=== PATIENT | female | born 1955 | race Hispanic/Latino ===

== ENCOUNTER 2019-04-15 09:30 | Emergency (ER) | payer BC, OTHER ==
[~2019-04-15] VITALS: Ht 152.4 cm; Wt 76.2 kg
--- OUTSIDE RECORDS SUMMARY | 2019-04-15 09:32 | XMS REPORT ---
Author Author [facility] Address Unknown Phone Unavailable Care Team Providers Care Consignee Name Role Phone Parish URIARTE Unavailable Unavailable Problems This patient has no known problems. Allergies, Adverse Reactions, Alerts This patient has no known allergies or adverse reactions. Medications This patient has no known medications. Results Test Description Test Time Test Comments Text Results Atomic Results Result Comments MAMMOGRAPHY DIGITAL DX UNI LT [place] [address] [place] [address] Patient Name: MARIA SOTO MR #: [id number] : 1955 Age/Sex: 62/F Req #: [id number] [facility] Physician: Ordered by: ANDREAS URIARTE MD Report #: [id number] Location: MAMMO Room/Bed: Procedure: [id number] MG/MAMMOGRAPHY DIGITAL DX UNI LT Exam Date: 07/24/17 Exam Time: 1123 REPORT STATUS: Signed #[id number] - [id number] #UNILATERAL LEFT DIGITAL DIAGNOSTIC MAMMOGRAM WITH SPOT COMPRESSION: 07/24/2017 CLINICAL: Patient returns today to evaluate a density in the left breast. Comparison is made to exams dated: 07/01/2017 mammogram - [facility] and 09/16/2014 mammogram - [facility]. Current study contains 3 films. The tissue of the left breast is heterogeneously dense. This may lower the sensitivity of mammography. No significant masses, calcifications, or other findings are seen in the breast. Focal spot compression in the lower, inner aspect of the left breast fails to substantiate a mass. There has been no significant interval change. IMPRESSION: BENIGN There is no mammographic evidence of malignancy. A 1 year screening mammogram is recommended. The patient will be notified by letter of the results. Abraham Gomez Jr., D.O. cw/:07/24/2017 14:45:08 Delinquent Tax Collection Assistant: Charla BRYAN)(Parish), [facility] letter sent: Normal Exam Mammogram BI-RADS: 2 Benign Dictated By: ABRAHAM GOMEZ DO 1445 Transcribed By: JESSE on 07/24/17 144 COPY TO: ANDREAS URIARTE MD MAMMOGRAPHY DIGITAL SCR BILAT [place] [address] Patient Name: MARIA SOTO MR #: [id number] : 1955 Age/Sex: 62/F Req #: [id number] Adm Physician: Ordered by: ANDREAS URIARTE MD Report #: [id number] Location: MAMMO Room/Bed: Procedure: [id number] MG/MAMMOGRAPHY DIGITAL SCR BILAT Exam Date: 07/01/17 Exam Time: 1050 REPORT STATUS: Signed #[id number] - [id number] #BILATERAL DIGITAL SCREENING MAMMOGRAM WITH CAD: 07/01/2017 CLINICAL: Routine screening. Comparison is made to exam dated: 09/16/2014 mammogram - [facility]. Current study contains 4 films. The tissue of both breasts is heterogeneously dense. This may lower the sensitivity of mammography. Current study was also evaluated with a Computer Aided Detection (CAD) system. There is a 5 mm density in the lower inner anterior left breast, 6 cm from the nipple. No significant masses, calcifications, or other findings are seen in either breast. IMPRESSION: INCOMPLETE: NEEDS ADDITIONAL IMAGING EVALUATION Recommend diagnostic left mammogram with spot compression and lateral views. Please request left breast limited ultrasound, to be performed if needed after mammogram. The patient will be contacted by the Mammography Department to schedule this appointment. Dr. Yolanda Dc MD rs/jesse:07/11/2017 07:09:36 Delinquent Tax Collection Assistant: Charla WELCH(Jed)(Parish), [facility] letter sent: Additional Imaging Needed Mammogram BI-RADS: 0 Indeterminate Dictated By: YOLANDA DC MD 8 Transcribed By: JESSE on 07/11/17708 COPY TO: ANDREAS URIARTE MD
[2019-04-15] MEDS ORDERED: DONNATAL/LIDOCAINE/MAALOX 30 ML SUSP PO NR (10:15)
[2019-04-15] MEDS ORDERED: SODIUM CHLORIDE 0.9% 1000ML 1,000 ML IV STA (10:35)
[2019-04-15] MEDS ORDERED: LEVOFLOXACIN 500MG/D5W 100ML 100 ML IV STA (10:35)
[2019-04-15] MEDS ORDERED: METRONIDAZOLE 500MG/NS 100ML 100 ML IV STA (10:35)
[2019-04-15] MEDS ORDERED: ONDANSETRON HCL INJ 2MG/ML 2ML 2 MG/ML VIAL IV NR (10:45)
--- NOTE | 2019-04-15 11:20 | Diagnostic Imaging Report ---
EXAM: CHEST SINGLE (PORTABLE), AP Portable DATE: 04/15/2019 Time stamp on exam: 11:00 AM INDICATION: Vomiting COMPARISON: None FINDINGS: LINES/TUBES: None LUNGS: No consolidations or edema. PLEURA: No effusions or pneumothorax. HEART AND MEDIASTINUM: Normal size and contour. Small air-containing structure in the mediastinal region likely represents a small hiatal hernia. BONES AND SOFT TISSUES: No acute findings. There is no subdiaphragmatic air. IMPRESSION: No acute thoracic abnormality. Signed by: Dr. Wm Gomez DO on 04/15/2019 11:17 AM
[2019-04-15 11:42] LABS: BASOPHILS % 0.4 % (0.0-1.0); EOSINOPHILS # (AUTO) 0.3 (0.0-0.4); EOSINOPHILS % 3.3 % (0.0-6.0); HEMATOCRIT 36.2 % (34.2-44.1); MEAN CORPUSCULAR HEMOGLOBIN 28.7 pg (28-32); MEAN CORPUSCULAR HGB CONC 33.1 g/dL (31-35); MEAN CORPUSCULAR VOLUME 86.6 fL (81-99); MONOCYTES # (AUTO) 0.6 (0.2-0.8); MONOCYTES % 7.4 % (4.4-11.3); NEUTROPHILS # (AUTO) 4.9 (2.1-6.9); NEUTROPHILS % 62.5 % (38.7-80.0); PLATELET COUNT 304 x10e3/uL (140-360); RED BLOOD COUNT 4.18 x10e6/uL (3.6-5.1); RED CELL DISTRIBUTION WIDTH 13.2 % (11.7-14.4)
[2019-04-15 11:52] LABS: BILIRUBIN,URINE NEGATIVE (NEGATIVE); CLARITY,URINE SL CLOUDY (CLEAR); COLOR,URINE YELLOW (YELLOW); KETONES,URINE NEGATIVE (NEGATIVE); LEUKOCYTE ESTERASE ,URINE TRACE (NEGATIVE); NITRITE,URINE NEGATIVE (NEGATIVE); PROTEIN,URINE DIPSTICK TRACE (NEGATIVE); URINE UROBILINOGEN 0.2 mg/dL (0.2 - 1)
[2019-04-15 12:02] LABS: ALANINE AMINOTRANSFERASE 43 IU/L (0-55); ALBUMIN 3.6 g/dL (3.5-5.0); ALBUMIN/GLOBULIN RATIO 1.1 (0.8-2.0); ALKALINE PHOSPHATASE 54 IU/L (40-150); ANION GAP 15.5 mmol/L (8-16); BLOOD UREA NITROGEN 10 mg/dL (7-26); BUN/CREATININE RATIO 13 (6-25); CALCIUM 9.1 mg/dL (8.4-10.2); CARBON DIOXIDE 22 mmol/L (22-29); CHLORIDE 105 mmol/L (98-107); CREATINE KINASE 37 IU/L (29-168); CREATININE, SERUM 0.79 mg/dL (0.57-1.11); EST GLOMERULAR FILTRATION RATE > 60 ML/MIN (60-); GLUCOSE 99 mg/dL (74-118); LIPASE 72 U/L (8-78); POTASSIUM 3.5 mmol/L (3.5-5.1); SODIUM 139 mmol/L (136-145)
[2019-04-15 12:10] LABS: BACTERIA,URINE RARE /HPF; EPITHELIAL CELLS,URINE MODERATE /LPF; TRANSITIONAL EPI CELLS,URINE RARE
--- NOTE | 2019-04-15 14:29 | Diagnostic Imaging Report ---
EXAM: CT ABDOMEN AND PELVIS with IV CONTRAST DATE: 04/15/2019 Time stamp on Exam: 1:15 PM INDICATION: Nausea and vomiting with abdominal pain COMPARISON: None TECHNIQUE: The abdomen and pelvis were scanned using a multidetector helical scanner. Coronal and sagittal reformations were obtained. Routine protocol performed. Technique modification was utilized to maintain the lowest dose possible to the patient. IV Contrast: 100 cc of Isovue-370 Oral Contrast: Water Radiation Dose: Total DLP 530.93 mGy*cm Estimated effective dose: DLP x 0.015 x size factor FINDINGS: LOWER THORAX: There is a broad based pleural nodule measuring 8 mm in the left lung base. Follow-up CT scan in 6 months to maintain stability is suggested. Moderate-sized hiatal hernia. LIVER: No masses with mildly diminished CT attenuation. BILIARY: The gallbladder is unremarkable. No ductal dilatation. SPLEEN: No masses PANCREAS: No masses ADRENALS: No nodules KIDNEYS: Symmetric perfusion. No enhancing masses. No hydronephrosis. GI TRACT: There is fluid present within the rectum that outlines a hyperdense substance suggesting a mass versus hyperdense feces. Correlation with the digital rectal exam is suggested. The appendix is normal. VESSELS: Unremarkable PERITONEUM/RETROPERITONEUM: No free air or fluid LYMPH NODES: No lymphadenopathy REPRODUCTIVE ORGANS: Unremarkable BLADDER: Unremarkable SOFT TISSUES: Small umbilical hernia BONES: No suspicious bone lesions. Degenerative changes of the spine with several striated vertebrae likely secondary to multiple hemangiomas. IMPRESSION: 1. Possible rectal mass versus hyperdense feces. 2. Moderate sized hiatal hernia. 3. Broad pleural based left lower lobe pulmonary nodule. Signed by: Dr. Wm Gomez DO on 04/15/2019 2:26 PM
[2019-04-15] MEDS ORDERED: SODIUM CHLORIDE 0.9% 50ML 50 ML ONE (15:17)
[2019-04-15] MEDS ORDERED: IOPAMIDOL 370 MG/ML 200 ML INFUS..BTL INJ ONE (15:17)
[2019-04-15 15:34] VITALS: BP 121/70
[2019-04-16] MEDS ORDERED: METOPROLOL TART50 MG PO (14:28)
[2019-04-16] MEDS ORDERED: LOSARTAN POTAS100 MG PO (14:28)
[2019-04-16] MEDS ORDERED: LEVOTHYROXINE PO (14:28)
[2019-04-16] MEDS ORDERED: ALENDRONATE SOD70 MG PO (14:28)
[2019-04-16] MEDS ORDERED: CITALOPRAM PO (14:28)
== END 2019-04-15 15:39 | disposition home or self-care (01) ==
LOC: ER 09:30
DX: R19.7 Diarrhea, unspecified (principal); K56.41 Fecal impaction
CPT/HCPCS: 36415; 71045; 74177; 80053; 81001; 82550; 82553; 83690; 84484; 85025; 99284; J1956; J2405; J7030; Q9967

== ENCOUNTER → 2019-04-17 | Day surgery (SDC) | payer OTHER ==
[~2019-04-17] MED LIST: ALENDRONATE SOD70 MG PO; CITALOPRAM PO; FENTANYL CITRATE/PF 100MCG/2 ML INJ ONE; LEVOTHYROXINE PO; LOSARTAN POTAS100 MG PO; METOPROLOL TART50 MG PO; MIDAZOLAM HCL 2 MG/2 ML VIAL ONE; PROPOFOL IV EMULSION 10 MG/ML 20 ML VIAL ONE
--- NOTE | 2019-04-17 18:59 | Operative Report ---
DATE OF PROCEDURE: 04/17/2019 SURGEON: Miguelangel Valdez MD PROCEDURES: Colonoscopy and polypectomy with biopsies. INDICATIONS FOR COLONOSCOPY: Rectal bleeding ?Rectal mass on CT scan. MEDICATIONS: The patient was done under MAC, please see anesthesiologist's note. PROCEDURE IN DETAIL: With the patient in left lateral decubitus position, flexible fiberoptic Olympus colonoscope was inserted into the rectum with ease and advanced all the way to the cecum. Mucosa overlying the cecum appeared to be within normal limits. One polyp was snared from the ascending colon. An approximately 1.5 cm submucosal lesion was noted in the proximal ascending colon suspicious for lipoma, biopsies were obtained. The rest of the ascending and the transverse appeared to be within normal limits. One polyp was snared from the descending colon. Minimal diverticulosis was noted in the sigmoid colon. One polyp was snared from the sigmoid colon. A large 3/4 fungating mass was noted in the distal rectum extending proximally from the dentate line. Multiple biopsies were obtained. The scope was subsequently withdrawn patient tolerated procedure well. IMPRESSION: 1. Ascending colon polyp, snared. 2. Rule out lipoma, ascending colon. 3. Descending colon polyp, snared. 4. Sigmoid colon polyp, snared. 5. Diverticulosis, sigmoid colon. 6. Large fungating 3/4 circumferential rectal mass extending proximally from the dentate line. Multiple biopsies obtained. 7. Internal hemorrhoids, none actively bleeding. PLAN: Follow up histology. The patient will need an oncology as well as a general surgical consultation. Miguelangel Valdez MD [facility] /[id number] cc: Elton De Leon MD
== END | disposition home or self-care (01) ==
LOC: OR 14:25
PROVIDERS: ATTEND Internal Medicine Gastroenterology
DX: C20 Malignant neoplasm of rectum (principal); D12.2 Benign neoplasm of ascending colon; D12.4 Benign neoplasm of descending colon; D12.5 Benign neoplasm of sigmoid colon; K57.30 Diverticulosis of large intestine without perforation or abscess without bleeding; K64.8 Other hemorrhoids; R19.7 Diarrhea, unspecified; R11.0 Nausea; R14.0 Abdominal distension (gaseous); E03.9 Hypothyroidism, unspecified; I10 Essential (primary) hypertension; Z68.30 Body mass index [BMI] 30.0-30.9, adult
CPT/HCPCS: 45380; 45385; J2250; J2704; J3010

== ENCOUNTER 2019-04-26 07:00 | Inpatient (IN) | payer OTHER ==
[~2019-04-26] VITALS: Ht 154.9 cm; Wt 78.5 kg
[~2019-04-26 07:00] MED LIST changes: -FENTANYL CITRATE/PF 100MCG/2 ML INJ ONE; -MIDAZOLAM HCL 2 MG/2 ML VIAL ONE; -PROPOFOL IV EMULSION 10 MG/ML 20 ML VIAL ONE
[2019-04-26] MEDS ORDERED: SODIUM CHLORIDE 0.9% 1000ML 1,000 ML ONE (07:55)
[2019-04-26] MEDS ORDERED: ONDANSETRON HCL INJ 2MG/ML 2ML 2 MG/ML VIAL ONE (07:55)
[2019-04-26] MEDS ORDERED: ONDANSETRON HCL INJ 2MG/ML 2ML 2 MG/ML VIAL IV STA (07:55)
[2019-04-26 07:59] LABS: BASOPHILS % 0.5 % (0.0-1.0); EOSINOPHILS # (AUTO) 0.2 (0.0-0.4); EOSINOPHILS % 2.5 % (0.0-6.0); HEMATOCRIT 37.2 % (34.2-44.1); HEMOGLOBIN 12.5 g/dL (12.0-16.0); LYMPHOCYTES # (AUTO) 2.6 (1.0-3.2); LYMPHOCYTES % 33.8 % (18.0-39.1); MEAN CORPUSCULAR HEMOGLOBIN 29.3 pg (28-32); MEAN CORPUSCULAR HGB CONC 33.6 g/dL (31-35); MEAN CORPUSCULAR VOLUME 87.3 fL (81-99); MONOCYTES # (AUTO) 0.7 (0.2-0.8); MONOCYTES % 9.4 % (4.4-11.3); NEUTROPHILS # (AUTO) 4.1 (2.1-6.9); NEUTROPHILS % 53.5 % (38.7-80.0); PLATELET COUNT 323 x10e3/uL (140-360); RED BLOOD COUNT 4.26 x10e6/uL (3.6-5.1); RED CELL DISTRIBUTION WIDTH 13.8 % (11.7-14.4)
[2019-04-26] MEDS ORDERED: SODIUM CHLORIDE 0.9% 1000ML 1,000 ML IV ONE (08:00)
[2019-04-26 08:13] LABS: ALANINE AMINOTRANSFERASE 21 IU/L (0-55); ALBUMIN 3.8 g/dL (3.5-5.0); ALBUMIN/GLOBULIN RATIO 1.1 (0.8-2.0); ALKALINE PHOSPHATASE 46 IU/L (40-150); ANION GAP 14.5 mmol/L (8-16); BLOOD UREA NITROGEN 11 mg/dL (7-26); BUN/CREATININE RATIO 13 (6-25); CALCIUM 9.3 mg/dL (8.4-10.2); CARBON DIOXIDE 22 mmol/L (22-29); CHLORIDE 101 mmol/L (98-107); CREATININE, SERUM 0.86 mg/dL (0.57-1.11); EST GLOMERULAR FILTRATION RATE > 60 ML/MIN (60-); GLUCOSE 108 mg/dL (74-118); POTASSIUM 3.5 mmol/L (3.5-5.1); SODIUM 134 mmol/L (136-145)
[2019-04-26 12:10] VITALS: BP 128/63
--- NOTE | 2019-04-26 12:10 | NUR ---
PATIENT RECEIVED FROM ER PER STRETCHER. ALERT AND VERBALLY RESPONSIVE. SKIN WARM AND DRY TO TOUCH, RESPIRATION EVEN AND UNLABORED. ABDOMEN SOFT AND NON DISTENDED, PATIENT SAID THAT SHE HAD A LOOSE STOOL THIS AM. PATIENT ORIENTED TO SURROUNDINGS, BED IN LOWER POSITION, CALL LIGHT AT REACH. INSTRUCTED TO CALL FOR ASSISTANCE NEEDED. FAMILY AT BED SIDE.
[2019-04-26 15:02] VITALS: BP 126/68
--- NOTE | 2019-04-26 16:17 | NUR ---
MD IN TO SEE PATIENT, NEW ORDERS RECEIVED.
[2019-04-26] MEDS ORDERED: HYDROCODONE/APAP 5MG-325MG TAB PO PRN (16:30)
[2019-04-26] MEDS ORDERED: ONDANSETRON HCL INJ 2MG/ML 2ML 2 MG/ML VIAL IV PRN (16:30)
[2019-04-26 20:00] VITALS: BP 125/65
--- NOTE | 2019-04-26 20:08 | NUR ---
RECEIVED PT IN BED AOX3 NO ACUTE DISTRESS NOTED .FAMILY IN THE BEDSIDE .DENIES PAIN .CALL LIGHT WITH IN REACH .CONTINUE TO MONITOR
[2019-04-26 20:23] VITALS: BP 126/68
[2019-04-26] MEDS ORDERED: MELATONIN 5 MG TABLET PO PRN (21:00)
[2019-04-26] MEDS: LOSARTAN POTASSIUM 100 MG TAB PO SCH ×2 (21:00→21:08)
[2019-04-26] MEDS ORDERED: SODIUM CHLORIDE 0.9% 50ML 50 ML ONE (22:38)
[2019-04-26] MEDS ORDERED: IOPAMIDOL 370 MG/ML 200 ML INFUS..BTL INJ ONE (22:38)
[2019-04-27] VITALS (9 sets, daily range): BP systolic 101–127; BP diastolic 52–72
[2019-04-27] MEDS ORDERED: PANTOPRAZOLE 40 MG 10ML VIAL IV STA (00:05)
--- NOTE | 2019-04-27 00:38 | History and Physical ---
CHIEF COMPLAINT: Rectal mass, was told to come to the hospital for further evaluation. HISTORY OF PRESENT ILLNESS: This is a 64-year-old female, who has multiple chief complaints with complaints of decreased oral intake, abdominal pain. Recent colonoscopy found to have according to the family, colon cancer. Came in last night with complaints of decreased oral intake over the last 2 weeks. Apparently, GI had told in fact last week that she had colon cancer and needed further workup and management. It seems that the family seemed to be very scared and came in early this morning to be further evaluated. They did not give me a true reason why they actually presented to the hospital except for they were told that she has colon cancer. She also endorses that she has had minimal stool output and decreased oral intake, but no nausea, vomiting, or chest pain. The patient was seen and evaluated at bedside on the medical floor. Currently, she is doing well with no other issues at this time. REVIEW OF SYSTEMS: Pertinent positives: Decreased oral intake, abdominal pain. Pertinent negatives: Denies any chest pain, palpitation, nausea, vomiting, diarrhea, dysuria, hematuria, frequency, urgency, lightheadedness, dizziness, cough, congestion, fever, or any other complaints. The rest of the 14-point review of systems are reviewed with the patient and are negative. ALLERGIES: NO KNOWN DRUG ALLERGIES. HOME MEDICATIONS: Alendronate 70 mg daily every week, losartan 100 mg daily, metoprolol 50 mg daily, citalopram 40 mg daily, and levothyroxine 25 mcg daily. PAST MEDICAL HISTORY: Hypothyroidism, hypertension, and recent diagnosis of colon cancer. PAST SURGICAL HISTORY: Recent colonoscopy with biopsy. FAMILY HISTORY: Hypertension and diabetes. SOCIAL HISTORY: No drugs. No alcohol. Does not smoke. Good social support. MICROBIOLOGY: None. IMAGING STUDIES: There was a CT abdomen and pelvis back on 04/15/2019 that showed evidence of a rectal mass. No recent imaging at this time. PHYSICAL EXAMINATION: GENERAL: Not in acute distress. Alert and oriented x3. Cooperative on examination. HEENT: Head is normocephalic and atraumatic. Eyes; pupils are equal, round, and reactive to light bilaterally. Extraocular movements are intact bilaterally. Throat, there is no evidence of erythema or exudates in the posterior pharynx. Has poor dentition. NECK: Supple. Good range of motion. PULMONARY: Clear to auscultation bilaterally. No wheezing, no rales, no rhonchi, no crackles appreciated CARDIOVASCULAR: Positive S1 and S2. No murmurs, rubs, or gallops appreciated. ABDOMEN: Soft, nondistended, and nontender to palpation. Bowel sounds present. MUSCULOSKELETAL: Strength is 5/5 throughout. No evidence of any muscle deficits on examination. No weakness appreciated. NEUROLOGICAL: Cranial nerves II through XII grossly intact. No evidence of any neurological deficits on exam. SKIN: Intact. Warm to touch. Good cap refill. PSYCHIATRIC: Normal affect and mood. EXTREMITIES: No edema. Good range of motion throughout. IMPRESSION: 1. Abdominal pain with decreased oral intake with recent diagnosis of colon cancer. 2. Rectal mass status post colonoscopy with biopsy per family consistent with colon cancer. Pathology is not available in the EMR. 3. Hypertension. 4. Hypothyroidism. PLAN: At this time, I will go ahead and consult with GI. The family reports that Dr. Lobo had called on April 22 and told them that it is colon cancer and needs to be further evaluated. Somehow, the family showed up to the hospital this morning to be further evaluated. If this is true, I do not have the pathology report here at the MR, I will go ahead and just consult with Surgery, which has already been done in the ER. Oncology and Dr. Valdez, GI to come and evaluate her. We will go and restart all other home medications, losartan, and metoprolol. Continue with levothyroxine, citalopram as well. I had a long discussion with the family at bedside. They verbalized understanding. She can go on a regular diet. Family reports that she has some gross bleeding as well during her stools, which we will go ahead and just put SCDs. Otherwise, we will await recommendations from the consultants for further management and care. MD ODALYS Toussaint/SOTERO /[id number]
--- NOTE | 2019-04-27 01:27 | Diagnostic Imaging Report ---
EXAM: CT Chest WITH contrast 04/26/2019 8:37 PM INDICATION: rectal cancer, lung nodule COMPARISON: Abdominal CT 04/15/2019 TECHNIQUE: Chest was scanned utilizing a multidetector helical scanner from the lung apex through the level of the adrenal glands without administration of IV contrast. Coronal and sagittal reformations were obtained. Routine protocol was performed. IV CONTRAST: 100 mL of Isovue 370 COMPLICATIONS: None RADIATION DOSE: Total DLP: 527 mGy*cm Estimated effective dose: (DLP x 0.014 x size factor) mSv CTDIvol has been reviewed. It is below the limits set by the Radiation Protocol Committee (RPC). Dose modulation, iterative reconstruction, and/or weight based adjustment of the mA/kV was utilized to reduce the radiation dose to as low as reasonably achievable. FINDINGS: LINES/ TUBES: None. LUNGS AND AIRWAYS: Left apical linear scarring. Subtle nodularity/undulation along the left posterior basilar pleura. The previously described subpleural 8 mm left posterior basilar lung nodule seen on abdominal CT 04/15/2019 now measures 6 mm on today's exam (series 3 image 104). Focal scarring in the medial segment right middle lobe. Airways are normal. PLEURA: The pleural spaces are clear. HEART AND MEDIASTINUM: The thyroid gland is normal. No mediastinal, hilar or axillary lymphadenopathy. The heart is normal in size. There is no pericardial effusion. Aortic arch calcifications. UPPER ABDOMEN: Moderate hiatal hernia. BONES: The visualized bony thorax is within normal limits. SOFT TISSUES: Unremarkable. IMPRESSION: The previously described left lower lobe basilar nodule is smaller on today's examination and is likely inflammatory and/or focal scarring/atelectasis. No suspicious pulmonary findings. Signed by: Michael Toledo DO on 04/27/2019 1:24 AM
[2019-04-27] MEDS: LEVOTHYROXINE SODIUM 25 MCG TABLET PO SCH (06:00)
[2019-04-27 06:21] LABS: BASOPHILS % 0.4 % (0.0-1.0); EOSINOPHILS # (AUTO) 0.2 (0.0-0.4); EOSINOPHILS % 2.4 % (0.0-6.0); HEMATOCRIT 33.2 % (34.2-44.1); HEMOGLOBIN 10.7 g/dL (12.0-16.0); LYMPHOCYTES # (AUTO) 1.6 (1.0-3.2); LYMPHOCYTES % 23.8 % (18.0-39.1); MEAN CORPUSCULAR HEMOGLOBIN 28.4 pg (28-32); MEAN CORPUSCULAR HGB CONC 32.2 g/dL (31-35); MEAN CORPUSCULAR VOLUME 88.1 fL (81-99); MONOCYTES # (AUTO) 0.6 (0.2-0.8); NEUTROPHILS # (AUTO) 4.3 (2.1-6.9); PLATELET COUNT 280 x10e3/uL (140-360); RED BLOOD COUNT 3.77 x10e6/uL (3.6-5.1)
[2019-04-27 07:00] LABS: ALANINE AMINOTRANSFERASE 20 IU/L (0-55); ALBUMIN 3.2 g/dL (3.5-5.0); ALBUMIN/GLOBULIN RATIO 1.1 (0.8-2.0); ANION GAP 12.4 mmol/L (8-16); BLOOD UREA NITROGEN 8 mg/dL (7-26); BUN/CREATININE RATIO 10 (6-25); CALCIUM 8.5 mg/dL (8.4-10.2); CARBON DIOXIDE 26 mmol/L (22-29); CHLORIDE 103 mmol/L (98-107); CREATININE, SERUM 0.78 mg/dL (0.57-1.11); EST GLOMERULAR FILTRATION RATE > 60 ML/MIN (60-); GLUCOSE 100 mg/dL (74-118); POTASSIUM 3.4 mmol/L (3.5-5.1); SODIUM 138 mmol/L (136-145)
--- NOTE | 2019-04-27 07:12 | NUR ---
PT RESTING DENIES PAIN REPORT GIVEN TO THE ONCOMING NURSE
--- NOTE | 2019-04-27 07:18 | NUR ---
PATIENT IN BED RESTING WITH NO S/S OF DISTRESS. DENIED PAIN AT THIS TIME. ALL PERSONAL ITEMS CLOSE TO PATIENT. BED IN LOWER POSITION, CALL LIGHT AT REACH. FAMILY MEMBER AT BED SIDE.
[2019-04-27 07:21] LABS: ALKALINE PHOSPHATASE 40 IU/L (40-150)
[2019-04-27] MEDS ORDERED: GADOBENATE DIMEGLUMINE 1 ML IV ONE (07:57)
[2019-04-27] MEDS ORDERED: SODIUM CHLORIDE 0.9% 100 ML 100 ML ONE (07:57)
[2019-04-27] MEDS ORDERED: PANTOPRAZOLE 40 MG 10ML VIAL IV SCH (09:00)
[2019-04-27] MEDS: METOPROLOL TARTRATE 50 MG TAB PO SCH (09:00)
[2019-04-27] MEDS ORDERED: LEVOTHYROXINE 25 MCG PO SCH (09:00)
[2019-04-27] MEDS ORDERED: CITALOPRAM 40 MG PO SCH (09:00)
[2019-04-27] MEDS: CITALOPRAM HYDROBROMIDE 20 MG TAB PO SCH (09:04)
[2019-04-27] MEDS ORDERED: ONDANSETRON HCL 4 MG ORAL DISINTEGRATING TAB PO PRN (11:15)
--- NOTE | 2019-04-27 11:18 | NUR ---
CALL RECEIVED FROM RADIOLOGY STATING THAT PATIENT'S MRI TIME WAS BACK UP. PATIENT NOTIFIED, NO CONCERN VOICED.
--- NOTE | 2019-04-27 15:55 | NUR ---
Visit made by the Spiritual Care Department Pastoral Visitor, Cecily Cruz. PV provided pastoral presence, hospitality, and supportive listening. Pastoral Visitor informed pt/family of the scope of [employer] and availability. DOTTIE AMIN Room Service Clerk Spiritual Care Department O: [phone] Pager: [phone] ([phone] number calling from)
--- NOTE | 2019-04-27 16:14 | NUR ---
PATIENT IV INFILTRATED. REMOVED WITH TIP INTACT. NEW IV 20 GAUGE INSERTED TO LEFT FOREARM. PATIENT TOLERATED PROCEDURE WELL. IN BED WITH CALL LIGHT AT REACH.
[2019-04-27] MEDS ORDERED: POTASSIUM CHLORIDE 20 MEQ TAB CR PO ONE (17:15)
--- NOTE | 2019-04-27 20:14 | NUR ---
RECEIVED PT SITTING ON THE CHAIR FAMILY MEMBERS IN THE ROOM.DENIES PAIN .DR DE GUZMAN HAVE SEEN THE PT .CONTINUE TO MONITOR
--- NOTE | 2019-04-27 23:35 | Progress Note ---
DATE: 04/27/2019 SUBJECTIVE: The patient is currently doing well with no complaints. The patient's family has multiple questions related to her plan of care in terms of her underlying malignancy. I have discussed this with them at bedside using the nursing as well as computer at bedside. I reviewed all the data with them. It seems that the Oncology would like to have the MRI findings first before pursuing any other intervention at this time. PHYSICAL EXAMINATION: VITAL SIGNS: Temperature is 98.3, pulse 67, respiratory rate 16, blood pressure 108/67, and pulse ox 96% on room air. GENERAL: In no acute distress. Alert and oriented x3. Cooperative on examination. HEENT: Head is normocephalic and atraumatic. Eyes; pupils are equal, round, and reactive to light bilaterally. Extraocular movements are intact bilaterally. Throat, no evidence of erythema or exudates in the posterior pharynx. Has poor dentition. NECK: Supple. Good range of motion. PULMONARY: Clear to auscultation bilaterally. No wheezing, no rales, no rhonchi, no crackles appreciated. CARDIOVASCULAR: Positive S1 and S2. No murmurs, rubs, or gallops appreciated. GI: Abdomen is soft, nondistended, and nontender to palpation. Bowel sounds present. MUSCULOSKELETAL: Strength is 5/5 throughout. No evidence of any muscle deficits on examination. No weakness appreciated. NEUROLOGICAL: Cranial nerves II through XII grossly intact. No evidence of any neurological deficits on exam. SKIN: Intact. Warm to touch. Good cap refill. PSYCHIATRIC: Normal affect and mood. EXTREMITIES: No edema. Good range of motion throughout. LABORATORY DATA: Lab findings show white count 6.6, hemoglobin 10.7, hematocrit 33, and platelets of 280. Chemistry; sodium 138, potassium 3.4, chloride 103, bicarb 26, anion gap of 12, BUN is 8, and creatinine 0.78. Rest of the electrolytes are stable. MICROBIOLOGY: None. IMAGING STUDIES: CT chest shows left lower lobe basilar nodules, smaller on today's examination and is likely inflammatory or focal scarring atelectasis. No suspicious pulmonary findings. MRI of the pelvis is pending. IMPRESSION: 1. Recent diagnosis of colon cancer with a rectal mass, status post colonoscopy. 2. Hypertension. 3. Hypothyroidism. PLAN: At this time, I had a long discussion with the oncologist, Dr. Castro. I discussed overall plan of care with oncologist. At this time MRI of the pelvis, this will help for stage the patient and to determine what is the next plan of care. From there, can determine if the patient will need chemoradiation or resection if indicated. I have discussed this with the family at bedside and they do not seem to really understand at all despite me and the consultants discussing this with them thoroughly. I reviewed this again at bedside today with the nursing staff, but still I do not think they really understand. I spoke with Dr. Castro, she will come back tonight and discuss everything with the family once again and from there we will determine the next plan of care. MRI of the pelvis is still pending. Continue with same plan of care with no changes at this time. MD ODALYS Toussaint/SOTERO /[id number]
[2019-04-28] MEDS ORDERED: FAMOTIDINE 20 MG/2 ML VIAL IV STA (00:05)
[2019-04-28 04:00] VITALS: BP 106/58
[2019-04-28] MEDS: LEVOTHYROXINE SODIUM 25 MCG TABLET PO SCH (05:46)
--- NOTE | 2019-04-28 06:29 | NUR ---
PT RESTING NO ACUTE DISTRESS NOTED .FAMILY AT THE BEDSIDE .CALL LIGHT WITH IN REACH
--- NOTE | 2019-04-28 07:11 | NUR ---
BEDSIDE REPORT GIVEN TO THE ONCOMING NURSE
--- NOTE | 2019-04-28 07:30 | NUR ---
Pt received in bed with eyes open. Aox4 and able to verbalize needs. Pt denies any pain at this time. Breaths are even and unlabored at this time.
[2019-04-28 07:48] VITALS: BP 101/56
[2019-04-28 08:00] VITALS: BP 101/56
[2019-04-28] MEDS: FAMOTIDINE 20 MG/2 ML VIAL IV SCH ×3 (08:39→17:00)
[2019-04-28] MEDS: METOPROLOL TARTRATE 50 MG TAB PO SCH (09:00)
[2019-04-28] MEDS: CITALOPRAM HYDROBROMIDE 20 MG TAB PO SCH (09:33)
--- NOTE | 2019-04-28 10:00 | NUR ---
Pt states she felt nauseas this morning but now it has passed. Pt refused to take pepcid this morning because she states it doesn't help her and it makes her nauseas. Pt ate very little this morning. Family is upset because they feel that nothing is being done about her nausea and lack of appetite. Explained to pt that GI has changed her diet and changed her medication for this very reason. Notified attending and received orders or labs to be done today. Called MRI and asked for MRI of pelvis to be read STAT in order for physician to see results.
--- NOTE | 2019-04-28 10:36 | NUR ---
FLOR[facility] CALLED TO ROOM BY PT'S DTR ODIN WALSH [phone] SHE IS REQUESTING THAT PT BE TRANSFERED TO [facility] FOR CONTINUED CARE FEELS LIKE THERE IS NO COLLABORATION BETWEEN THE PHYSICIANS TAKING CARE OF PT AND THAT HER NEEDS ARE NOT BEING ADDRESSED NURSE INFANTE AWARE AND CALL PLACED TO DR MENDOZA TO NOTIFY HIM OF PT AND FAMILIES REQUEST GAVE PT'S DTR MY CARD WITH NAME AND NUMBER FOR QUESTIONS/CONCERNS
[2019-04-28 10:50] LABS: BASOPHILS # (AUTO) 0.1 (0.0-0.1); BASOPHILS % 0.7 % (0.0-1.0); EOSINOPHILS # (AUTO) 0.1 (0.0-0.4); EOSINOPHILS % 1.1 % (0.0-6.0); HEMATOCRIT 36.8 % (34.2-44.1); HEMOGLOBIN 11.9 g/dL (12.0-16.0); LYMPHOCYTES # (AUTO) 1.8 (1.0-3.2); LYMPHOCYTES % 25.6 % (18.0-39.1); MEAN CORPUSCULAR HEMOGLOBIN 28.5 pg (28-32); MEAN CORPUSCULAR HGB CONC 32.3 g/dL (31-35); MONOCYTES # (AUTO) 0.6 (0.2-0.8); MONOCYTES % 8.1 % (4.4-11.3); NEUTROPHILS # (AUTO) 4.6 (2.1-6.9); NEUTROPHILS % 64.1 % (38.7-80.0); PLATELET COUNT 313 x10e3/uL (140-360); RED BLOOD COUNT 4.18 x10e6/uL (3.6-5.1)
[2019-04-28 11:05] LABS: ANION GAP 12.8 mmol/L (8-16); BLOOD UREA NITROGEN 8 mg/dL (7-26); BUN/CREATININE RATIO 10 (6-25); CALCIUM 9.1 mg/dL (8.4-10.2); CARBON DIOXIDE 27 mmol/L (22-29); CHLORIDE 101 mmol/L (98-107); CREATININE, SERUM 0.78 mg/dL (0.57-1.11); EST GLOMERULAR FILTRATION RATE > 60 ML/MIN (60-); GLUCOSE 108 mg/dL (74-118); POTASSIUM 3.8 mmol/L (3.5-5.1); SODIUM 137 mmol/L (136-145)
--- NOTE | 2019-04-28 11:23 | Diagnostic Imaging Report ---
MRI OF THE PELVIS (RECTAL CARCINOMA) WITHOUT AND WITH CONTRAST CLINICAL HISTORY: Rectal carcinoma. COMPARISON: CT abdomen/pelvis 04/15/2019 TECHNIQUE: Using the torso phased array coil, axial and sagittal T2 weighted, axial and coronal T1-weighted, sagittal fat-suppressed T2-weighted sequences were obtained. Then, an axial post gadolinium fat-suppressed T1-weighted sequence was obtained. Images were obtained in a standard pelvis field of view. In other words, a dedicated rectal MRI protocol was not performed. CONTRAST: 15 cc IV gadolinium. FINDINGS: Polypoid rectal mass in the low rectum. Tumor Length: 7.4 cm maximum linear extent along the rectum. Tumor Distance from Pubococcygeal rin.7 cm distance from the top of the anal sphincter to the tumor. The sphincter is likely involved. Maximal Rectal Circumference Involved by Tumor: 5:00 to 11:00 positions Wall invasion: T3, full-thickness with invasion of the subserosa Circumferential Resection Margin: 0.5 cm at the 6:00 position. No involvement of the vagina or cervix. Relationship to Peritoneal Reflection: Below Perirectal Nodes (number, size and enhancing characteristics): Uniformly enhancing lymph node in the right mesorectum measures 1.3 x 0.9 cm There are 2 right external iliac chain lymph nodes that measure 0.8 x 1.4 cm and 0.7 cm. There are 3 lymph nodes in the left mesorectum. The largest measures 1.1 x 0.6 cm.. 2 lymph nodes along the inferior mesenteric vein measure 5 mm. N2 Side Wall Extension/Adjacent Organ Involvement: No involvement of the vagina, cervix, or uterus. No bladder involvement. Other Findings: The large bowel is not dilated. Mild burden of diverticulosis coli. No dilatation of the visualized portions of the small bowel. Visualized portion of the appendix is normal. The uterus is present and normal in morphology. No adnexal mass. Peritoneum/retroperitoneum: No free fluid or fluid collection. Bones: Normal marrow signal. No focal osseous lesions. IMPRESSION: Polypoid mass in the inferior rectum with likely sphincter involvement. No bowel obstruction. MR STAGE: T3 N2 Signed by: Dr. Kg Ordonez MD on 04/28/2019 11:20 AM
[2019-04-28 11:28] VITALS: BP 114/66
[2019-04-28] MEDS ORDERED: DEXTROSE 5%/0.9% SOD CHL 1,000 ML IV ONE (15:00)
[2019-04-28] MEDS ORDERED: PROMETHAZINE 12.5MG/ NACL 0.9% 12.5 MG/50 ML BAG IV PRN (15:00)
[2019-04-28] MEDS ORDERED: PROMETHAZINE 12.5MG/ NACL 0.9% 50 ML IV PRN ×2 (15:15)
[2019-04-28 15:57] VITALS: BP 144/68
--- NOTE | 2019-04-28 16:00 | NUR ---
Notified Dr. Valdez that pt is not tolerating clear liquid. An received orders for for abdominal ultrasound and HIDA scan. Dr. Castro came to see pt and family to discuss MRI results. Pt family is requesting that pt be transferred to [facility]. Attending was notified and he gave orders to initiate transfer. Case management is aware and initiated transfer process
--- NOTE | 2019-04-28 16:36 | NUR ---
ORDERS TO TRANSFER TO [facility] CALLED AND SPOKE WITH AKASH AT [facility] PH- [phone] FAXED FACE SHEET TO [phone] CHOICE LETTER DONE; MOT INITIATED AND PLACED ON FRONT OF CHART PT'S DTR ODIN REQUESTS COPIES OF EVERYTHING HER MOTHER SIGNED; COPIES PROVIDED REC'D CALL BACK SHORTLY AFTER INITIATED TRANSFER AKASH STATES THEY ARE ON DIVERT AND PT WAS DENIED BY DR REVELES PT, FAMILY AND DR MENDOZA NOTIFIED THAT PT WAS DENIED PT'S DTR AKASH REQUESTS THAT WE CONTINUE TO PURSUE TRANSFER DAILY WITH HOPES OF BED BECOMING AVAILABLE EXPLAINED TO PT'S DTR THAT PT MAY BE BETTER SERVED GOING TO [facility] OP EXPLAINED THAT I WILL CONTINUE TO PURSUE TRANSFER BUT PLAN B IS TO F/U OP AT [facility] ENCOURAGED PT'S DTR TO CONTACT [facility] AND TRY TO ARRANGE OP F/U
--- NOTE | 2019-04-28 17:37 | Diagnostic Imaging Report ---
EXAM: US ABDOMEN COMPLETE DATE: 04/28/2019 12:00 AM INDICATION: Nausea, vomiting, abdominal pain COMPARISON: None TECHNIQUE: Transverse and longitudinal castrejon scale and color doppler sonographic images of the upper abdomen were obtained. FINDINGS: There is no evidence of fluid or masses seen in the area of clinical concern in the right lower quadrant. LIVER 11.5 cm in the right midclavicular line. Normal echogenicity of the liver with normal contour, no masses. SPLEEN 8.1 cm in maximum diameter. Normal echogenicity, no masses. GALLBLADDER There is dependent sludge in the gallbladder. No gallbladder wall thickening or pericholecystic fluid. Negative sonographic Ovalles's. BILE DUCTS No intra nor extra-hepatic biliary dilation. Common bile duct measures 0.4cm PANCREAS: Visualized portions are normal. RIGHT KIDNEY: 9.8 cm Echogenicity: Normal Collecting System: No hydronephrosis Stones: None Cyst/Mass: None LEFT KIDNEY: 10.9 cm Echogenicity: Normal Collecting System: No hydronephrosis Stones: None Cyst/Mass: None VESSELS: Aorta: Visualized portions are within normal size limits Inferior Vena Cava: Visualized portions are normal Main Portal Vein: 0.9 cm, normal size with hepatopetal flow. FREE FLUID: None IMPRESSION: Gallbladder sludge with no gallbladder wall thickening or pericholecystic fluid. Negative sonographic Ovalles's sign. Signed by: Mica Toribio MD on 04/28/2019 5:34 PM
[2019-04-28] MEDS ORDERED: ONDANSETRON HCL 4 MG ORAL DISINTEGRATING TAB PO SCH (18:00)
--- NOTE | 2019-04-28 19:10 | NUR ---
Pt currently at [facility] Dept for HIDA Scan. Family members in room waiting for patient.
--- NOTE | 2019-04-28 19:45 | NUR ---
Patient arrived via wheelchair to Rm 295 s/p HIDA scan. Patient alert and oriented x3. No c/o pain or nausea at this time. Pt stated she feels fine at this time. Pt to be given Zofran 4mg PO prior to eating clear liquid diet as precaution. IVF (D5NS at 100ml/hr) restarted. Pt ambulatory in room prn. Family at bedside. Call ferrer within reach. Will monitor closely.
[2019-04-28 20:00] VITALS: BP 131/69
--- NOTE | 2019-04-28 20:00 | Progress Note ---
DATE: 04/28/2019 Medicine Progress Note SUBJECTIVE: The patient still reports having some nausea and vomiting. An MRI of the pelvis was noted and it was discussed with the family about the findings by Oncology. HIDA scan and abdominal ultrasound have been ordered. PHYSICAL EXAMINATION: VITAL SIGNS: Temperature is 99, pulse 77, respiratory rate is 20, blood pressure is 144/68, and pulse ox 98% on room air. GENERAL: Not in acute distress. Alert and oriented x3. Cooperative on examination. HEENT: Head is normocephalic and atraumatic. Eyes; pupils are equal, round, and reactive to light bilaterally. Extraocular movements are intact bilaterally. Throat, no evidence of erythema or exudates in the posterior pharynx. Has poor dentition. NECK: Supple. Good range of motion. PULMONARY: Clear to auscultation bilaterally. No wheezing, no rales, no rhonchi, no crackles appreciated. CARDIOVASCULAR: Positive S1 and S2. No murmurs, rubs, or gallops appreciated. ABDOMEN: Soft, nondistended, and nontender to palpation. Bowel sounds present. MUSCULOSKELETAL: Strength is 5/5 throughout. No evidence of muscle deficits on examination. No weakness appreciated. NEUROLOGIC: Cranial nerves II through XII grossly intact. No evidence of any neurological deficits on exam. SKIN: Intact. Warm to touch. Good cap refill. PSYCHIATRIC: Normal affect and mood. EXTREMITIES: No edema. Good range of motion throughout. LABORATORY FINDINGS: Show white count of 7.1, hemoglobin 11.9, hematocrit 36.8, and platelets of 330. Chemistry; sodium of 137, potassium 3.8, chloride 101, bicarb 27, anion gap 12, BUN is 8, creatinine 0.78, glucose is 108, and calcium is 9.1. CEA was 5.3. IMAGING STUDIES: Abdominal ultrasound is now back shows gallbladder sludge with no gallbladder wall thickening or pericholecystic fluid. Negative sonographic Ovalles sign. IMPRESSION: 1. 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 2. Hypertension. 3. Hypothyroidism. 4. Nausea, vomiting, and dehydration with decreased oral intake. PLAN: At this time, MRI of the pelvis was reviewed with the patient by Oncology. The patient has stage T3 N2 based on the MRI findings. It shows a polypoid mass in the inferior rectum with likely sphincter involvement. No bowel obstruction. At this time, abdominal ultrasound has been ordered and the results are back with no evidence of any cholecystitis. She is currently getting a HIDA scan that has been ordered by Dr. Valdez. I will re-arrange the antinausea medication, now she is on promethazine. If this does not work, I will add Reglan. Continue with IV fluids as well. We discontinued the losartan due to the blood pressure readings relatively low. I discussed overall plan of care with the family at bedside. The daughter wants to be transferred to [facility] for further treatment. I discussed with her that we can initiate this process, but she just kept this new diagnosis and less likely that they will be able to accept her, as currently she is not on any kind of chemotherapy treatment or radiation. At this time, we will continue with the process of transfer if she is accepted. Continue with antinausea medication, IV fluids, clear liquid diet, and pain control. We will continue to follow with her. Consultants are following as well. MD ODALYS Toussaint/SOTERO /[id number]
--- NOTE | 2019-04-28 20:04 | Diagnostic Imaging Report ---
Hepatobiliary Scan with Gallbladder Ejection Fraction Clinical information: Abdominal pain; nausea and vomiting Technique: Following intravenous administration of 7 millicuries of Tc-99m mebrofenin, dynamic images of the abdomen in the anterior projection were obtained through 45 minutes. Sincalide (CCK analog) 1.5 micrograms was administered intravenously over 30 minutes with additional imaging for determination of gallbladder ejection fraction. Discussion: Perfusion of the liver is normal. Extraction of tracer by the liver parenchyma is normal. Tracer appears promptly within the biliary tract. The gallbladder begins to fill at 6 minutes post injection of tracer and fills adequately. Tracer is seen in the small bowel by 22 minutes. There is no contractile response by the gallbladder to the pharmacologic dose of sincalide. No emptying of the gallbladder occurs during the 30 minute infusion. Impression: 1. Filling of the gallbladder excludes acute cystic duct obstruction/acute cholecystitis. 2. The gallbladder ejection fraction is undefined as there is no emptying of the gallbladder during the infusion of sincalide. This absence of a contractile response to sincalide supports the clinical diagnosis of chronic cholecystitis/gallbladder dyskinesia. Signed by: Dr. Charla Amezcua M.D. on 04/28/2019 8:01 PM
[2019-04-29] VITALS (7 sets, daily range): BP systolic 111–139; BP diastolic 56–64
[2019-04-29] MEDS: ACETAMINOPHEN 325 MG TAB PO PRN (00:58)
[2019-04-29] MEDS: ONDANSETRON HCL 4 MG ORAL DISINTEGRATING TAB PO SCH ×5 (01:04→23:12)
--- NOTE | 2019-04-29 01:15 | NUR ---
Dr. Miguelangel Valdez came and visited pt. MD spoke with patient and patient's at bedside explaining result of HIDA scan. MD informed gallbladder not functioning properly. Dr. Valdez also wanted patient to try to eat a sandwich now and see if patient can tolerate it without having episodes of nausea and vomiting.
--- NOTE | 2019-04-29 01:20 | NUR ---
Patient given 1 [address] eat per Dr. Pawel Valdez's order.
--- NOTE | 2019-04-29 01:25 | NUR ---
Patient ate half of the turkey sandwich and wanted to stop due to feeling of fullness. Patient denies any feeling of nausea and no episodes of vomiting. Pt kept food down at this time. MD (Dr. Pawel Valdez) made aware and ordered to advance diet to GI soft in the morning only if the patient does not have any episodes of nausea or vomiting.
--- NOTE | 2019-04-29 05:00 | NUR ---
Patient stated she had a bowel movement with mixture of blood stools. Will relay information to dayshift RN during shift change report.
[2019-04-29 05:52] LABS: BASOPHILS # (AUTO) 0.1 (0.0-0.1); BASOPHILS % 0.6 % (0.0-1.0); EOSINOPHILS # (AUTO) 0.1 (0.0-0.4); EOSINOPHILS % 1.3 % (0.0-6.0); HEMATOCRIT 33.1 % (34.2-44.1); HEMOGLOBIN 10.9 g/dL (12.0-16.0); LYMPHOCYTES # (AUTO) 2.4 (1.0-3.2); MEAN CORPUSCULAR HEMOGLOBIN 29.1 pg (28-32); MEAN CORPUSCULAR HGB CONC 32.9 g/dL (31-35); MEAN CORPUSCULAR VOLUME 88.3 fL (81-99); MONOCYTES # (AUTO) 0.7 (0.2-0.8); MONOCYTES % 9.2 % (4.4-11.3); NEUTROPHILS # (AUTO) 4.6 (2.1-6.9); NEUTROPHILS % 58.6 % (38.7-80.0); PLATELET COUNT 260 x10e3/uL (140-360); RED BLOOD COUNT 3.75 x10e6/uL (3.6-5.1)
[2019-04-29 06:08] LABS: ANION GAP 11.3 mmol/L (8-16); BLOOD UREA NITROGEN 7 mg/dL (7-26); BUN/CREATININE RATIO 9 (6-25); CALCIUM 8.2 mg/dL (8.4-10.2); CARBON DIOXIDE 26 mmol/L (22-29); CHLORIDE 102 mmol/L (98-107); CREATININE, SERUM 0.77 mg/dL (0.57-1.11); EST GLOMERULAR FILTRATION RATE > 60 ML/MIN (60-); GLUCOSE 100 mg/dL (74-118); POTASSIUM 3.3 mmol/L (3.5-5.1); SODIUM 136 mmol/L (136-145)
[2019-04-29] MEDS: LEVOTHYROXINE SODIUM 25 MCG TABLET PO SCH ×2 (06:13→23:12)
[2019-04-29] MEDS: DEXTROSE 5%/0.9% SOD CHL 1,000 ML IV SCH ×2 (08:00→18:12)
[2019-04-29] MEDS ORDERED: POTASSIUM CHLORIDE 20 MEQ TAB CR PO STA (08:16)
[2019-04-29] MEDS: METOPROLOL TARTRATE 50 MG TAB PO SCH (09:00)
[2019-04-29] MEDS: FAMOTIDINE 20 MG/2 ML VIAL IV SCH ×2 (09:00→17:00)
--- NOTE | 2019-04-29 09:49 | NUR ---
ASSESSMENT: Spiritual concern Referred by RN. Pt sleeping soundly with at bedside. Pt's looking to dalia for strength. Pt's states their daughter (RN at [employer] [place]) is a helpful in explaining illness. Pt's states he is a volunteer shrimp boat captain with [place] [employer]. Pt identifies as Alevism Spiritism. Intervention: Provided hospitality, empathic listening and pastoral presence. Facilitated discussion about resources. Provided business card and information on how to contact shrimp boat captain, if needed. Outcome: Pt's expressed appreciation for visit. Will follow as able. DOTTIE AMIN Assurance Senior Manager Insurance Spiritual Care Department O: [phone] Pager: [phone] ([phone] number calling from)
[2019-04-29] MEDS: CITALOPRAM HYDROBROMIDE 20 MG TAB PO SCH (10:08)
--- NOTE | 2019-04-29 12:00 | NUR ---
DISCUSSED IN ROUNDS TODAY HIDA SHOWS DYSKINESIA OF GB US ABD SHOWS SLUDGE IN GALLBLADDER SURGICAL CONSULT
--- NOTE | 2019-04-29 15:30 | NUR ---
Spoke with Dr. Pawel Valdez to inform pt is still having lots of nausea.Was told by Dr. Valdez that he spoke with Dr. Mao related to the abnormal HIDA scan and asked if I can notify Dr. Mao of pt symptoms. Notified Dr. Mao and he states he will come to see pt this evening.
--- NOTE | 2019-04-29 18:30 | NUR ---
New IV started on Left wrist and well tolerated by pt. Pt nausea has improved and was able to tolerated meal this evening.
--- NOTE | 2019-04-29 19:03 | Progress Note ---
DATE: 04/29/2019 Medicine Progress Note SUBJECTIVE: The patient is doing well today. Still complains of some nausea and vomiting. HIDA scan consistent with biliary dyskinesia. I discussed this with the GI. General Surgery was re-consulted to come and evaluate, possibly a cholecystectomy. I discussed this with the family at bedside. They verbalized understanding. PHYSICAL EXAMINATION: VITAL SIGNS: Temperature 98.9, pulse 87, respiratory rate is 18, blood pressure is 113/57, and pulse ox 100% on room air. GENERAL: No acute distress. Alert and oriented x3. Cooperative on examination. HEENT: Head is normocephalic, atraumatic. Eyes; pupils are equal, round, and reactive to light bilaterally. Extraocular movements intact bilaterally. Throat; no evidence of erythema or exudates in the posterior pharynx. Has poor dentition. NECK: Supple. Good range of motion. PULMONARY: Clear to auscultation bilaterally. No wheezing, rales, or rhonchi. No crackles appreciated. CARDIOVASCULAR: Positive S1, S2. No murmurs, rubs, or gallops appreciated. ABDOMEN: Soft, nondistended, and nontender to palpation. Bowel sounds present. MUSCULOSKELETAL: Strength is 5/5 throughout. No evidence of any muscle deficits on examination. No weakness appreciated. NEUROLOGIC: Cranial nerves II through XII are grossly intact. No evidence of any neurological deficits on exam. SKIN: Intact. Warm to touch. Good cap refill. PSYCHIATRIC: Normal affect and mood. EXTREMITIES: No edema. Good range of motion throughout. LAB FINDINGS: White count 7.8, hemoglobin 10.9, hematocrit 30.1, platelets are about 260. Chemistry; sodium 136, potassium 3.3, chloride 102, bicarb 26, anion gap of 11, BUN is 7, creatinine is 0.77, and glucose is 8.2. MICROBIOLOGY: None. IMAGING STUDIES: Abdominal ultrasound was performed, shows gallbladder sludge with no gallbladder wall thickening or pericholecystic fluid. Negative sonographic Ovalles sign. HIDA scan shows evidence of filling of the gallbladder exclude acute cystic duct obstruction or acute cholecystitis. The gallbladder ejection fraction is on the findings. There are no changes in the gallbladder during the infusion of the sincalide. The absence of the contractile response and clear supports include the diagnosis of chronic cholecystitis/gallbladder dyskinesia. IMPRESSION: 1. Recent diagnosis of adenocarcinoma of the colon with rectal mass, status post colonoscopy recently as well. 2. Hypertension. 3. Hypothyroidism. 4. Nausea, vomiting, dehydration, and decreased oral intake. 5. Biliary dyskinesia seen on HIDA scan. PLAN: At this time, from an Oncology standpoint, the workup can be performed as an outpatient. Family is still insisting on being transferred to [facility]. At this time, we will continue with that plan of care at the current moment. In relation to her biliary dyskinesia seen on HIDA scan, General Surgery has been consulted and he is supposed to come back to talk to the family and possible getting a cholecystectomy. She is currently still not eating much. She is on antinausea medication. She is on scheduled Reglan as well. Continue with IV fluids and pain control. I discussed the plan of care with the family at bedside and with the nursing staff present. We will get a.m. labs. MD ODALYS Toussaint/SOTERO /[id number]
--- NOTE | 2019-04-29 19:12 | NUR ---
Patient seen in room during nursing rounds. Patient alert and oriented x3. Dr. Maria A Mao in room talking to patient and family at bedside. MD explained pt will have Laparoscopic Cholecystectomy tomorrow afternoon (04/30/19). Patient and family agreed to plan of care. Currently, pt states she feels fine and denies any nausea or pain. Call ferrer within reach.
--- NOTE | 2019-04-29 21:04 | NUR ---
Patient's daughter (Dang Cuellar) and (David Craig) volunteered to sign consent papers on behalf of patient. Pt resting comfortably in bed.
[2019-04-30] VITALS (8 sets, daily range): BP systolic 106–157; BP diastolic 56–71
[2019-04-30] MEDS: ACETAMINOPHEN 325 MG TAB PO PRN (00:11)
[2019-04-30] MEDS: DEXTROSE 5%/0.9% SOD CHL 1,000 ML IV SCH ×2 (04:45→18:08)
[2019-04-30 06:05] LABS: BASOPHILS % 0.3 % (0.0-1.0); EOSINOPHILS # (AUTO) 0.2 (0.0-0.4); EOSINOPHILS % 2.5 % (0.0-6.0); HEMATOCRIT 30.8 % (34.2-44.1); HEMOGLOBIN 9.9 g/dL (12.0-16.0); LYMPHOCYTES # (AUTO) 2.5 (1.0-3.2); LYMPHOCYTES % 39.3 % (18.0-39.1); MEAN CORPUSCULAR HEMOGLOBIN 28.9 pg (28-32); MEAN CORPUSCULAR HGB CONC 32.1 g/dL (31-35); MEAN CORPUSCULAR VOLUME 90.1 fL (81-99); MONOCYTES # (AUTO) 0.7 (0.2-0.8); MONOCYTES % 10.5 % (4.4-11.3); NEUTROPHILS % 47.1 % (38.7-80.0); PLATELET COUNT 252 x10e3/uL (140-360); RED BLOOD COUNT 3.42 x10e6/uL (3.6-5.1); RED CELL DISTRIBUTION WIDTH 14.3 % (11.7-14.4)
[2019-04-30 06:23] LABS: ALANINE AMINOTRANSFERASE 12 IU/L (0-55); ALBUMIN 2.8 g/dL (3.5-5.0); ALBUMIN/GLOBULIN RATIO 0.9 (0.8-2.0); ALKALINE PHOSPHATASE 42 IU/L (40-150); ANION GAP 10.6 mmol/L (8-16); BLOOD UREA NITROGEN 7 mg/dL (7-26); BUN/CREATININE RATIO 9 (6-25); CALCIUM 7.9 mg/dL (8.4-10.2); CARBON DIOXIDE 25 mmol/L (22-29); CHLORIDE 109 mmol/L (98-107); CREATININE, SERUM 0.75 mg/dL (0.57-1.11); EST GLOMERULAR FILTRATION RATE > 60 ML/MIN (60-); GLUCOSE 101 mg/dL (74-118); POTASSIUM 3.6 mmol/L (3.5-5.1); SODIUM 141 mmol/L (136-145)
--- NOTE | 2019-04-30 06:54 | NUR ---
RECEIVED PATIENT RESTING IN BED. NO ACUTE DISTRESS NOTED. DENIES PAIN OR DISCOMFORT AT THIS TIME. AT BEDSIDE. CALL LIGHT WITHIN REACH. BED IN THE LOWEST POSITION.
[2019-04-30] MEDS: ONDANSETRON HCL 4 MG ORAL DISINTEGRATING TAB PO SCH ×3 (08:00→20:07)
[2019-04-30] MEDS: FAMOTIDINE 20 MG/2 ML VIAL IV SCH ×2 (09:00→16:42)
--- NOTE | 2019-04-30 10:10 | NUR ---
ASSESSMENT: Spiritual distress Pt worried concerning illness. Pt expressed emotions thru few words and tears. Pt values family, especially (4) grandchildren. Pt's at bedside. Intervention: Provided empathic listening. Provided pastoral presence. Promoted a sense of peace. Provided prayer. Outcome: Pt & expressed appreciation for visit. Will follow as able. DOTTIE Snowdenlain Spiritual Care Department O: [phone] Pager: [phone] ([phone] number calling from)
--- NOTE | 2019-04-30 12:51 | NUR ---
Patient off the unit for procedure at this time.
[2019-04-30] MEDS ORDERED: BUPIVACAINE 0.25%/EPI 30ML SDV INJ ONE (12:59)
--- NOTE | 2019-04-30 13:39 | NUR ---
Nutrition Screen Note RD Recommendation for Physician: - Rec advancng diet as tolerated to low fat diet Plan of Care: RD following, monitoring for tolerance and adequacy, diet education Nutrition reason for involvement: LOS Primary Diagnose(s): adenocarcinoma of the colon with rectal mass PMH: Hypothyroidism, hypertension, and recent diagnosis of colon cancer Ht: 61in Wt: 173lb BMI: 32.7kg/m2 IBW: 105lb +/- 10% RD Assessment: (04/30) Chart reviewed. Labs and meds reviewed. 64yo F, who was admitted for decreased PO intake and abdominal pain. Visited pt in the room. Pt was NPO for planned cholecystectomy today. Pt ate 15-50% meal prior to NPO. No complains of nausea or vomiting. Pt denied any chewing or swallowing difficulty. Unknown weight loss history. Provided education and handouts on low fat diet prior to surgery. All questions have been answered. Current Diet: NPO Malnutrition Evaluation (04/30/2019) The patient does not meet criteria for a specified degree of malnutrition at this time. Will re-evaluate at follow-up as appropriate. Energy intake: <50% of estimated energy requirements for >5 days Weight loss: Unknown Fat loss: None Muscle loss: None Supporting Evidence: Fluid accumulation: None Functional Status: reduced Diet Education Needs Assessment: Diet education indicated, pt was agreeable. Learner(s): pt Barriers: none Cultural/Language Modifications: Pt speaks Jamaican. Readiness: acceptance Method: Handouts, explanation Topics: Low fat diet Understanding/Compliance: Expect fair understanding/compliance from pt. Will benefit from reinforcement. All questions have been answered. Nutrition Care Level: low Signed: Pearl Gomez, MS, RD, LD
[2019-04-30] MEDS ORDERED: HYDROMORPHONE 1MG/1ML INJ IV PRN (15:00)
[2019-04-30] MEDS ORDERED: ACETAMINOPHEN 1000 MG/100 ML IV PRN (15:00)
[2019-04-30] MEDS ORDERED: HYDROMORPHONE 2MG/ML 2 MG/ML ML IV PRN (15:15)
[2019-04-30] MEDS ORDERED: ACETAMINOPHEN 1000 MG/100 ML 100 ML IV PRN (15:15)
--- NOTE | 2019-04-30 15:23 | NUR ---
PATIENT BACK TO UNIT AT THIS TIME. SHE IS IN STABLE CONDITION. FAMILY AT BEDSIDE.
[2019-04-30] MEDS: CITALOPRAM HYDROBROMIDE 20 MG TAB PO SCH (16:41)
[2019-04-30] MEDS: METOPROLOL TARTRATE 50 MG TAB PO SCH (16:42)
[2019-04-30] MEDS ORDERED: FENTANYL CITRATE/PF 100MCG/2 ML INJ ONE (19:10)
[2019-04-30] MEDS ORDERED: MIDAZOLAM HCL 2 MG/2 ML VIAL ONE (19:10)
--- NOTE | 2019-04-30 19:12 | NUR ---
REPORT GIVEN TO ONCOMING NURSE. PATIENT IS RESTING IN BED. NO ACUTE DISTRESS NOTED. DENIES PAIN OR DISCOMFORT AT THIS TIME. FAMILY AT BEDSIDE. CALL LIGHT WITHIN REACH. BED IN THE LOWEST POSITION.
--- NOTE | 2019-04-30 19:31 | NUR ---
PT IS RESTING IN BED WITH FAMILY AT BEDSIDE. RESPIRATION IS EVEN AND UNLABORED, NO DISTRESS NOTED. BED IN THE LOWEST POSITION, LOCKED, AND CALL LIGHT WITHIN REACH. WILL CONTINUE TO MONITOR.
--- NOTE | 2019-04-30 21:25 | Operative Report ---
DATE OF PROCEDURE: 04/30/2019 SURGEON: William Mao MD PREOPERATIVE DIAGNOSIS: Biliary dyskinesia. POSTOPERATIVE DIAGNOSIS: Biliary dyskinesia. OPERATION PERFORMED: Laparoscopic cholecystectomy. REHAB CONSULTANT: Dr. Virgil Mao and YADI Naranjo. ANESTHESIA: General. COMPLICATIONS: None. ESTIMATED BLOOD LOSS: Minimal. DESCRIPTION OF PROCEDURE: When the patient lying in bed in the supine position under good general endotracheal anesthesia, the abdomen was prepped with Betadine solution and draped in the usual manner. A Veress needle was introduced into the umbilicus and pneumoperitoneum was established without any difficulty. An 11 mm trocar was placed into the umbilicus and a 10 mm videolaparoscope was placed into the intraabdominal cavity. Under direct vision, three 5 mm trocars were placed in the right subcostal region. Videolaparoscopy at this point revealed the liver that was perfectly clean. There was no sign of any metastatic spread of disease from the patient's known rectal tumor. The rest of the abdominal exploration was within normal limits except for the gallbladder that showed a tensely distended, somewhat edematous gallbladder with adhesions to the lower half of the gallbladder. All the adhesions to the gallbladder were then slowly and carefully taken down. The peritoneum overlying the neck of the gallbladder was then opened. The cystic duct was identified. The cystic duct was followed to its junction with the common duct. The cystic duct was then circumferentially dissected away from the common duct, doubly clipped and divided. The cystic artery was similarly doubly clipped and divided. The gallbladder was then slowly and carefully taken off the liver bed using the cautery scissors and perfect hemostasis was ascertained. The gallbladder was grasped through the umbilical port and removed without any difficulty. Videolaparoscopy was then again carried out. The liver bed was found to be perfectly dry. All of the excess fluid was aspirated. The pneumoperitoneum was evacuated and all the trocars were removed under direct vision. The midline fascia at the umbilicus was then closed with a [id number] of 0 Vicryl all layers were infiltrated on the way out with solution of 0.25% Marcaine. Subcutaneous tissue was approximated with 3-0 Vicryl and the skin was closed with subcuticular 5-0 Vicryl. Benzoin, Steri-Strips, and Band-Aids were applied. The sponge, lap, and needle counts were correct. The patient tolerated the procedure well and returned to the recovery room in stable condition. MD MAYLIN Watters/SOTERO /[id number]
--- NOTE | 2019-04-30 23:05 | Progress Note ---
DATE: 04/30/2019 Medicine Progress Note SUBJECTIVE: The patient underwent status post laparoscopic cholecystectomy. She did well postoperatively. The patient was evaluated postprocedure. OBJECTIVE: VITAL SIGNS: Temperature 96.3, pulse 80, respiratory rate is 16, blood pressure is 157/71 and pulse ox 91% on room air. GENERAL: Not in acute distress. Alert and oriented x3. Cooperative on examination. HEENT: Head is normocephalic, atraumatic. Eyes; pupils are equal, round, and reactive to light bilaterally. Extraocular movements are intact bilaterally. NECK: Supple. Good range of motion throughout. No evidence of erythema or exudates in the posterior pharynx. Has poor dentition. PULMONARY: Clear to auscultation bilaterally. No wheezing, rales, or rhonchi. No crackles appreciated. CARDIOVASCULAR: Positive S1, S2. No murmurs, rubs, or gallops appreciated. ABDOMEN: Soft, nondistended, and nontender to palpation. Bowel sounds present. MUSCULOSKELETAL: Strength is 5/5 throughout. No evidence of any muscle deficits on examination. No weakness appreciated. NEUROLOGIC: Cranial nerves II through XII grossly intact. No evidence of any neurological deficits on exam. SKIN: Intact. Warm to touch. Good cap refill. PSYCHIATRIC: Normal affect and mood. EXTREMITIES: No edema. Good range of motion throughout. LAB FINDINGS: Show white count 6.3, hemoglobin 9.9, hematocrit 31 and platelets of 252. Chemistry reviewed and is stable. ASSESSMENT: 1. Recent diagnosis of adenocarcinoma of colon with rectal mass, status post colonoscopy . 2. Hypertension. 3. Hypothyroidism. 4. Nausea and vomiting, dehydration, decreased oral intake. 5. Biliary dyskinesia, status post laparoscopic cholecystectomy. PLAN: At this time, laparoscopic cholecystectomy postop day #0. Clear liquid diet this evening. Pain control. General Surgery and GI are following. Oncology is following as well. I spoke with the family. We did not hear anything from [facility]. Daughter is already working with under her insurance. At this time, we will get a.m. labs. Continue with same plan of care. MD ODALYS Toussaint/SOTERO /[id number]
[2019-05-01] VITALS (7 sets, daily range): BP systolic 110–133; BP diastolic 56–76
[2019-05-01] MEDS: ONDANSETRON HCL 4 MG ORAL DISINTEGRATING TAB PO SCH ×4 (01:12→20:18)
[2019-05-01] MEDS: DEXTROSE 5%/0.9% SOD CHL 1,000 ML IV SCH ×2 (03:46→13:23)
[2019-05-01] MEDS: LEVOTHYROXINE SODIUM 25 MCG TABLET PO SCH (04:57)
--- NOTE | 2019-05-01 06:54 | NUR ---
RECEIVED PATIENT RESTING IN BED. NO ACUTE DISTRESS NOTED. AT BEDSIDE. CALL LIGHT WITHIN REACH. BED IN THE LOWEST POSITION.
[2019-05-01 07:14] LABS: BASOPHILS % 0.3 % (0.0-1.0); EOSINOPHILS % 0.1 % (0.0-6.0); HEMOGLOBIN 9.7 g/dL (12.0-16.0); LYMPHOCYTES # (AUTO) 2.4 (1.0-3.2); LYMPHOCYTES % 33.8 % (18.0-39.1); MEAN CORPUSCULAR HGB CONC 31.3 g/dL (31-35); MEAN CORPUSCULAR VOLUME 92.5 fL (81-99); MONOCYTES # (AUTO) 0.6 (0.2-0.8); MONOCYTES % 7.9 % (4.4-11.3); NEUTROPHILS % 57.6 % (38.7-80.0); PLATELET COUNT 228 x10e3/uL (140-360); RED BLOOD COUNT 3.35 x10e6/uL (3.6-5.1); RED CELL DISTRIBUTION WIDTH 14.2 % (11.7-14.4)
[2019-05-01 08:17] LABS: ALANINE AMINOTRANSFERASE 19 IU/L (0-55); ALBUMIN 2.5 g/dL (3.5-5.0); ALBUMIN/GLOBULIN RATIO 0.9 (0.8-2.0); ALKALINE PHOSPHATASE 40 IU/L (40-150); ANION GAP 12.4 mmol/L (8-16); BLOOD UREA NITROGEN 7 mg/dL (7-26); BUN/CREATININE RATIO 10 (6-25); CALCIUM 7.6 mg/dL (8.4-10.2); CARBON DIOXIDE 22 mmol/L (22-29); CHLORIDE 111 mmol/L (98-107); CREATININE, SERUM 0.68 mg/dL (0.57-1.11); EST GLOMERULAR FILTRATION RATE > 60 ML/MIN (60-); GLUCOSE 111 mg/dL (74-118); POTASSIUM 3.4 mmol/L (3.5-5.1); SODIUM 142 mmol/L (136-145)
[2019-05-01] MEDS: FAMOTIDINE 20 MG/2 ML VIAL IV SCH ×2 (08:30→16:30)
[2019-05-01] MEDS: CITALOPRAM HYDROBROMIDE 20 MG TAB PO SCH (08:33)
[2019-05-01] MEDS: METOPROLOL TARTRATE 50 MG TAB PO SCH (08:34)
--- NOTE | 2019-05-01 08:50 | NUR ---
NOTIFIED DR. MENDOZA OF PATIENT'S POTASSIUM LEVEL OF 3.4 AND CALCIUM LEVEL OF 7.6. NEW ORDERS RECEIVED FOR POTASSIUM 40 MEW PO X1.
[2019-05-01] MEDS ORDERED: POTASSIUM CHLORIDE 20 MEQ TAB CR PO NR (09:00)
[2019-05-01] MEDS ORDERED: ONDANSETRON HCL 4 MG ORAL DISINTEGRATING TAB PO NR (15:45)
--- NOTE | 2019-05-01 16:35 | Progress Note ---
DATE: 05/01/2019 Medicine Progress Note SUBJECTIVE: The patient is doing well today, tolerating diet well. She is on a full liquid diet. No overnight events. PHYSICAL EXAMINATION: VITAL SIGNS: Temperature 97.5, pulse 60, respiratory rate 17, blood pressure 117/58, pulse ox 98% on room air. GENERAL: Not in acute distress. Alert and oriented x3. Cooperative on examination. HEENT: Head is normocephalic and atraumatic. Eyes; pupils are equal, round, and reactive to light bilaterally. Extraocular movements are intact bilaterally. Throat; no evidence of erythema or exudates in the posterior pharynx. Has poor dentition NECK: Supple. Good range of motion. PULMONARY: Clear to auscultation bilaterally. No wheezing, rales, or rhonchi. No crackles appreciated. CARDIOVASCULAR: Positive S1, S2. No murmurs, rubs, or gallops appreciated. ABDOMEN: Soft, nondistended, and nontender to palpation. Bowel sounds present. MUSCULOSKELETAL: Strength is 5/5 throughout. No evidence of any muscle deficits on examination. No weakness appreciated. NEUROLOGICAL: Cranial nerves II through XII are grossly intact. No evidence of any neurological deficits on exam. SKIN: Intact. Warm to touch. Good cap refill. PSYCHIATRIC: Normal affect and mood. EXTREMITIES: No edema. Good range of motion throughout. LAB FINDINGS: White count 6.9, hemoglobin 9.7, hematocrit 31, platelets of 228. Chemistry; sodium 142, potassium 3.4, chloride 111, bicarb 22, anion gap of 12, BUN 7, creatinine is 0.68, glucose is 111, calcium was 7.6, total bilirubin was 0.4, AST 29, ALT 19, alkaline phosphatase 14, total albumin was 2.5. IMPRESSION: 1. Recent adenocarcinoma of the colon with a rectal mass, status post colonoscopy with diagnosis. 2. Hypertension. 3. Hypothyroidism. 4. Nausea, vomiting, and dehydration. 5. Biliary dyskinesia, status post laparoscopic cholecystectomy, postoperative day #1. PLAN: At this time, she is on full liquid diet. Continue postop day #1 followup. General Surgery will see her as well as GI. Once she tolerates solid food well, we will consider discharging her home, once she has been cleared by the consultants. I think she is potentially cleared by all consultants, just awaiting for her to tolerate her diet. Daughter wants her to leave tomorrow. We will follow the monitor very closely and discharge tomorrow. MD ODALYS Toussaint/SOTERO /[id number]
[2019-05-01] MEDS ORDERED: PANTOPRAZOLE SOD 40 MG TABEC PO NR (18:30)
--- NOTE | 2019-05-01 19:10 | NUR ---
REPORT GIVEN TO ONCOMING NURSE, WALKING ROUNDS DONE. PATIENT IS RESTING IN BED. NO ACUTE DISTRESS NOTED. FAMILY IS AT BEDSIDE. CALL LIGHT WITHIN REACH. BED IN THE LOWEST POSITION.
[2019-05-02] VITALS (7 sets, daily range): BP systolic 117–183; BP diastolic 61–87
[2019-05-02] MEDS: ONDANSETRON HCL 4 MG ORAL DISINTEGRATING TAB PO SCH ×3 (01:58→13:45)
[2019-05-02] MEDS: LEVOTHYROXINE SODIUM 25 MCG TABLET PO SCH (05:54)
--- NOTE | 2019-05-02 06:54 | NUR ---
RECEIVED PATIENT RESTING IN BED. NO ACUTE DISTRESS NOTED. DENIES PAIN OR DISCOMFORT AT THIS TIME. CALL LIGHT WITHIN REACH. BED IN THE LOWEST POSITION.
[2019-05-02 07:21] LABS: BASOPHILS % 0.3 % (0.0-1.0); EOSINOPHILS # (AUTO) 0.2 (0.0-0.4); EOSINOPHILS % 2.8 % (0.0-6.0); HEMATOCRIT 30.1 % (34.2-44.1); HEMOGLOBIN 9.9 g/dL (12.0-16.0); LYMPHOCYTES # (AUTO) 2.3 (1.0-3.2); LYMPHOCYTES % 34.9 % (18.0-39.1); MEAN CORPUSCULAR HGB CONC 32.9 g/dL (31-35); MEAN CORPUSCULAR VOLUME 88.3 fL (81-99); MONOCYTES # (AUTO) 0.5 (0.2-0.8); MONOCYTES % 6.9 % (4.4-11.3); NEUTROPHILS # (AUTO) 3.6 (2.1-6.9); NEUTROPHILS % 54.8 % (38.7-80.0); PLATELET COUNT 238 x10e3/uL (140-360); RED BLOOD COUNT 3.41 x10e6/uL (3.6-5.1); RED CELL DISTRIBUTION WIDTH 14.1 % (11.7-14.4)
[2019-05-02 07:35] LABS: ANION GAP 12.3 mmol/L (8-16); BLOOD UREA NITROGEN < 5 mg/dL (7-26); CALCIUM 8.1 mg/dL (8.4-10.2); CARBON DIOXIDE 23 mmol/L (22-29); CHLORIDE 110 mmol/L (98-107); CREATININE, SERUM 0.72 mg/dL (0.57-1.11); EST GLOMERULAR FILTRATION RATE > 60 ML/MIN (60-); GLUCOSE 90 mg/dL (74-118); POTASSIUM 3.3 mmol/L (3.5-5.1); SODIUM 142 mmol/L (136-145)
[2019-05-02 07:37] LABS: BUN/CREATININE RATIO 7 (6-25)
[2019-05-02] MEDS: CITALOPRAM HYDROBROMIDE 20 MG TAB PO SCH (09:00)
[2019-05-02] MEDS: METOPROLOL TARTRATE 50 MG TAB PO SCH (09:00)
[2019-05-02] MEDS ORDERED: POTASSIUM CHLORIDE 20 MEQ TAB CR PO ONE (09:32)
[2019-05-02] MEDS ORDERED: LOPERAMIDE HCL 2 MG CAP PO ONE (09:45)
--- NOTE | 2019-05-02 16:42 | NUR ---
RECEIVED DC ORDER FROM MD. PATIENT IS IN STABLE CONDITION. IV LINE TO LEFT WRIST DCD WITH TIP INTACT, PRESSURE APPLIED TO SITE, NO BLEEDING NOTED. DISCHARGE EDUCATION PROVIDED TO PATIENT AND DAUGHTER, THEY VERBALIZED UNDERSTANDING. PATIENT ACCOMPANIED TO PRIVATE AUTO VIA WHEELCHAIR BY STAFF.
--- NOTE | 2019-05-02 22:51 | Discharge Summary ---
FINAL DISCHARGE DIAGNOSES: 1. Adenocarcinoma of the colon, rectal mass after recent colonoscopy performed by GI. 2. Biliary dyskinesia, status post laparoscopic cholecystectomy. 3. Nausea, vomiting, and dehydration, all resolved after the cholecystectomy. 4. Hypothyroidism. 5. Hypertension. CONSULTANTS: We had General Surgery, GI, Hematology/Oncology. PHYSICAL EXAMINATION: VITAL SIGNS: Temperature is 96.8, pulse 66, respiratory rate is 18, blood pressure was 135/66, pulse ox 96% on room air. LABORATORY DATA: White count 6.4, hemoglobin 9.9, hematocrit is 30, and platelets of 238. Chemistry; sodium 142, potassium 3.3, chloride 110, bicarb 23, anion gap of 12, BUN is 5, creatinine is 0.72, glucose is . LFTs were within normal range. Albumin was 2.5. CEA was found to be 5.3, elevated. Clostridium difficile toxin was negative. IMAGING STUDIES: CT chest, previously described left lower lobe basilar nodules, smaller on today's examination, is likely inflammatory, and no focal scarring or atelectasis. No suspicious pulmonary findings. MRI of the pelvis shows polypoid mass in the inferior rectum with likely sphincter involvement. No bowel obstruction. T3 N2 MR staging. Abdominal ultrasound shows gallbladder sludge with no gallbladder wall thickening or pericholecystic fluid. Negative sonographic Ovalles sign. HIDA scan was consistent with biliary dyskinesia and chronic cholecystitis. HOSPITAL COURSE: A 64-year-old female, who recently had a colonoscopy, found to have adenocarcinoma of the colon, that was performed with a recent colonoscopy, performed by ESEQUIEL Castro. Family came into the hospital for further evaluation, management, and care. While here, General Surgery, GI and Hematology/Oncology were consulted. 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 Therefore, Hematology/Oncology was consulted. The patient had MRI of the pelvis with results above. Oncology recommended close followup in their office upon discharge for chemoradiation therapy and at some point may need a surgical intervention. General Surgery also discussed this with them at bedside on several occasions as well as GI. While in the hospital stay, the patient continued to complain of nausea, vomiting, and decreased oral intake. At that point, further testing was performed. Abdominal ultrasound showed some gallbladder sludge with no gallbladder wall thickening or pericholecystic fluid, but the HIDA scan was consistent with biliary dyskinesia. We reconsulted back with General Surgery and the patient underwent status post laparoscopic cholecystectomy on 04/30/2019. The patient did well postoperatively, started on clear liquid diet and advanced to regular food with no complaints. The patient has been cleared by General Surgery for discharge, GI for discharge as well as Hematology/Oncology and was advised to follow up very closely with these consultants for further management and care. The patient's family was requesting [facility] transfer, but currently they do not have any beds and the family agreed to be discharged home. The daughter is working on making appointment with the oncologist at [facility] as well as a colorectal surgeon at [facility] as well. The patient was stable prior to being discharged, was cleared by all consultants for discharge home. On the day of discharge, vital signs were stable, labs reviewed and stable. The patient seen and evaluated, examined thoroughly on the day of discharge. No other complaints. The patient verbalized understanding and agreed to plan of care. A followup appointment as an outpatient with all of these consultants as described. Follow up in the next 1 to 2 weeks. MEDICATIONS: See med reconciliation form. DISPOSITION: Home. CONDITION: Stable. DIET: Heart healthy. In the event of any worsening symptoms, the patient was advised to come back to the ED for further evaluation. Discharge summary took greater than 35 minutes. MD ODALYS Toussaint/MODL /[id number]
== END 2019-05-02 16:42 | disposition home or self-care (01) | DRG 358 ==
LOC: ER 07:00 → ERHOLD 08:36 → MED/SURG3 12:06
PROVIDERS: ADMIT Internal Medicine; ATTEND Internal Medicine
PROC: 0FT44ZZ Resection of Gallbladder, Percutaneous Endoscopic Approach (ICD-10-PCS; principal; 2019-04-30 13:00)
DX: C20 Malignant neoplasm of rectum (principal); E03.9 Hypothyroidism, unspecified; I10 Essential (primary) hypertension; K82.8 Other specified diseases of gallbladder; F41.9 Anxiety disorder, unspecified; R91.8 Other nonspecific abnormal finding of lung field; R11.2 Nausea with vomiting, unspecified; K44.9 Diaphragmatic hernia without obstruction or gangrene; M81.0 Age-related osteoporosis without current pathological fracture; T47.1X5A Adverse effect of other antacids and anti-gastric-secretion drugs, initial encounter; Y92.230 Patient room in hospital as the place of occurrence of the external cause; E86.0 Dehydration
CPT/HCPCS: 36415; 71260; 72197; 76700; 78227; 80048; 80053; 82378; 85025; 86850; 86900; 87493; 88304; 88305; 88342; 93005; 99284; A9537; J2250; J2405; J2550; J3010; J7030; J7042; Q0162; Q9967

== ENCOUNTER → 2023-01-21 | Outpatient (CLI) | payer MEDICARE | LOC: MAMMO 10:00 | PROVIDERS: ATTEND Internal Medicine | DX: Z12.31 Encounter for screening mammogram for malignant neoplasm of breast (principal) | CPT/HCPCS: 77067 ==

== ENCOUNTER → 2023-05-08 | Outpatient (CLI) | payer MEDICARE ==
[~2023-05-08] MED LIST changes: +DIATRIZOATE MEGL/DIATRIZOA SOD 30 ML BTL PO ONE; +IOPAMIDOL 370 MG/ML 100 ML INFUS..BTL INJ ONE
[2023-05-08 14:16] LABS: CREATININE, SERUM 0.76 mg/dL (0.57-1.11)
== END ==
LOC: CT 13:22
PROVIDERS: ATTEND Internal Medicine
DX: R10.31 Right lower quadrant pain (principal)
CPT/HCPCS: 36415; 74177; 82565; 84520; Q9963; Q9967

== ENCOUNTER 2024-01-19 12:25 | Outpatient (RCR) | payer MEDICARE ==
[~2024-01-19 12:25] MED LIST changes: -DIATRIZOATE MEGL/DIATRIZOA SOD 30 ML BTL PO ONE; -IOPAMIDOL 370 MG/ML 100 ML INFUS..BTL INJ ONE
== END 2024-02-17 ==
LOC: PT 12:25
PROVIDERS: ATTEND Physician Assistant
DX: M48.56XA Collapsed vertebra, not elsewhere classified, lumbar region, initial encounter for fracture (principal)

== ENCOUNTER → 2024-06-14 | Outpatient (REF) | payer MEDICARE | LOC: MAMMO 13:20 | PROVIDERS: ATTEND Internal Medicine | DX: Z12.31 Encounter for screening mammogram for malignant neoplasm of breast (principal) | CPT/HCPCS: 77067 ==